=== PATIENT | female | born 1990 | race American Indian/Alaskan Native ===

== ENCOUNTER 2017-07-02 12:30 | Inpatient (IN) | payer OTHER ==
[~2017-07-02] VITALS: Ht 167.6 cm; Wt 3.2 kg
[2017-07-17] MEDS ORDERED: PRENATAL MULTI1 EAC3 PO (07:00)
[2017-07-19] MEDS ORDERED: PREPLUS CA-FE1 EACH PO (13:51)
[2017-07-19] MEDS ORDERED: NAPR500T14 PO (13:51)
== END 2017-07-19 13:56 | DRG 766 ==
LOC: ADM 12:30 → EDSTATUS 12:30 → O/R 07-17 05:00 → OB/GYN 07-17 07:00
PROVIDERS: Specialist
PROC: 0UT70ZZ Resection of Bilateral Fallopian Tubes, Open Approach (ICD-10-PCS; 2017-07-17)
PROC: 4A1HXCZ Monitoring of Products of Conception, Cardiac Rate, External Approach (ICD-10-PCS; 2017-07-17)
PROC: 10D00Z1 Extraction of Products of Conception, Low, Open Approach (ICD-10-PCS; principal; 2017-07-17 07:00)
DX: O34.211 Maternal care for low transverse scar from previous cesarean delivery (principal); Z3A.38 38 weeks gestation of pregnancy; Z37.0 Single live birth; Z30.2 Encounter for sterilization; Z64.1 Problems related to multiparity

== ENCOUNTER 2017-07-22 22:12 | Inpatient (IN) | payer OTHER ==
[~2017-07-22] VITALS: Ht 167.6 cm; Wt 72.6 kg
[~2017-07-22 22:12] MED LIST: NAPR500T14 PO; PRENATAL MULTI1 EAC3 PO; PREPLUS CA-FE1 EACH PO
[2017-07-29] MEDS ORDERED: DOXYCYCLINE HY100 MG PO (07:58)
== END 2017-07-29 12:05 | disposition home or self-care (01) | DRG 769 ==
LOC: ER 22:12 → OB/GYN 07-23 06:47
PROVIDERS: Specialist
PROC: 0J980ZZ Drainage of Abdomen Subcutaneous Tissue and Fascia, Open Approach (ICD-10-PCS; principal; 2017-07-24 12:45)
DX: O86.0 Infection of obstetric surgical wound (principal); A41.9 Sepsis, unspecified organism; B95.62 Methicillin resistant Staphylococcus aureus infection as the cause of diseases classified elsewhere